=== PATIENT | male | born 1955 | race Caucasian/White ===

== ENCOUNTER → 2016-06-01 | Outpatient (CLI) | payer OTHER ==
[~2016-06-01] MED LIST: ALBU17IN INH; ASPI1TAB PO; CRES40TA PO; HUMA100I3 SC; INSULADS SC; JANU100T PO; LASI40TA PO; LOSA100T36 PO; METF500T PO; METO100T PO; OMEP20CA3 PO; POTA10CA32 PO; SPIR50TA2 PO; TOPR100T PO; ULTR37.52 PO; VENL37.598 PO
[2016-06-01 18:06] LABS: INR 1.13
[2016-06-01 18:09] LABS: ALBUMIN 2.7 GM/DL (3.2-5.2); ALBUMIN/GLOBULIN RATIO 0.61 (1.00-1.93); ALKALINE PHOSPHATASE 289 U/L (45-117); ALT/SGPT 45 U/L (12-78); ANION GAP 9 MEQ/L (8-16); AST/SGOT 55 U/L (15-37); BLOOD UREA NITROGEN 21 MG/DL (7-18); CALCIUM LEVEL 9.1 MG/DL (8.5-10.1); CARBON DIOXIDE LEVEL 28 MEQ/L (21-32); CHLORIDE LEVEL 102 MEQ/L (98-107); CREATININE FOR GFR 1.19 MG/DL (0.70-1.30); GLOMERULAR FILTRATION RATE > 60.0 (>56); GLUCOSE, FASTING 107 MG/DL (70-105); POTASSIUM SERUM 4.5 MEQ/L (3.5-5.1); SODIUM LEVEL 139 MEQ/L (136-145); TOTAL PROTEIN 7.1 GM/DL (6.4-8.2)
[2016-06-01 18:12] LABS: BASO % 0.4 % (0.0-1.0); EOS # 0.2 K/mm3 (0.0-0.50); EOS % 2.2 % (0.0-3.0); LARGE UNSTAINED CELL # 0.2 K/mm3 (0.0-0.4); LARGE UNSTAINED CELL % 1.8 % (0.0-4.0); LYMPH # 1.7 K/mm3 (1.5-4.5); LYMPH % 20.2 % (24.0-44.0); MEAN CORPUSCULAR HEMOGLOBIN 33.8 pg (27.0-33.0); MEAN CORPUSCULAR HGB CONC 33.5 g/dl (32.0-36.5); MEAN CORPUSCULAR VOLUME 100.9 fl (80.0-96.0); MONO # 0.5 K/mm3 (0.0-0.8); MONO % 6.1 % (0.0-5.0); NEUTROPHILS # 5.9 K/mm3 (1.8-7.7); NEUTROPHILS % 69.3 % (36.0-66.0); PLATELET COUNT, AUTOMATED 165 k/mm3 (150-450); WHITE BLOOD COUNT 8.4 K/mm3 (4.0-10.0)
== END ==
LOC: M LAB 15:57
PROVIDERS: ATTEND Internal Medicine Gastroenterology
DX: I81 Portal vein thrombosis (principal)

== ENCOUNTER → 2016-06-10 | Outpatient (CLI) | payer OTHER ==
[~2016-06-10] VITALS: Ht 177.8 cm; Wt 114.8 kg
[~2016-06-10] MED LIST changes: +INSULADS INJ; +LIDOCAINE 2% INJ 100 MG/5 ML SDV (FOR ANES.) As Ordered ONE; +NS 1,000 ML IV SCH; +PRIL20CA9 PO; +PROP10TA56 PO; +PROPOFOL 200 MG/20 ML VIAL As Ordered ONE
--- NOTE | 2016-06-10 10:52 | ROOR ---
Patient Name: Niles Montalvo Procedure Date: 06/10/2016 10:33 AM Date of : 1955 Age: 60 Room: [facility] Gender: Male Note Status: Finalized Procedure: Upper GI endoscopy Indications: For therapy of esophageal varices Providers: Negrito CASAS MD Referring MD: Mateus SWAN MD Requesting Provider: Medicines: Monitored Anesthesia Care Complications: No immediate complications. Procedure: Pre-Anesthesia Assessment: - The heart rate, respiratory rate, oxygen saturations, blood pressure, adequacy of pulmonary ventilation, and response to care were monitored throughout the procedure. The Endoscope was introduced through the mouth, and advanced to the second part of duodenum. The upper GI endoscopy was accomplished without difficulty. The patient tolerated the procedure well. Findings: Grade II/III varices were found in the lower third of the esophagus. Six bands were successfully placed with incomplete eradication of varices. There was no bleeding during the procedure. Mild portal hypertensive gastropathy was found in the entire examined stomach. The exam was otherwise without abnormality. Impression: - Grade II/III esophageal varices. Incompletely eradicated. Banded x 6. - Portal hypertensive gastropathy. - The examination was otherwise normal. - No specimens collected. Recommendation: - Repeat upper endoscopy in 1 month for retreatment. - My office will call you to reschedule the procedure. Negrito Casas MD Negrito CASAS MD 06/10/2016 10:51:56 AM This report has been signed electronically. Number of Addenda: 0 Note Initiated On: 06/10/2016 10:33 AM Estimated Blood Loss: Estimated blood loss: none.
--- NOTE | 2016-06-10 11:06 | ROOR ---
Patient Name: Niles Montalvo Procedure Date: 06/10/2016 10:36 AM Date of : 1955 Age: 60 Room: [facility] Gender: Male Note Status: Finalized Procedure: Colonoscopy Indications: Screening for colorectal malignant neoplasm Providers: Negrito CASAS MD Referring MD: Mateus SWAN MD Requesting Provider: Medicines: Monitored Anesthesia Care Complications: No immediate complications. Procedure: Pre-Anesthesia Assessment: - The heart rate, respiratory rate, oxygen saturations, blood pressure, adequacy of pulmonary ventilation, and response to care were monitored throughout the procedure. The Colonoscope was introduced through the anus and advanced to the cecum, identified by appendiceal orifice and ileocecal valve. The colonoscopy was performed without difficulty. The patient tolerated the procedure well. The quality of the bowel preparation was good. Findings: The perianal and digital rectal examinations were normal. (Exam: Complete, Prep: Good or Excellent.) A 4 mm polyp was found in the hepatic flexure. The polyp was sessile. The polyp was removed with a cold snare. Resection and retrieval were complete. Internal hemorrhoids were found during retroflexion. The hemorrhoids were moderate. The exam was otherwise without abnormality on direct and retroflexion views. Impression: - One 4 mm polyp at the hepatic flexure, removed with a cold snare. Resected and retrieved. - Moderate Internal hemorrhoids. - The examination was otherwise normal on direct and retroflexion views. Recommendation: - Await pathology results. - If the pathology report reveals adenomatous tissue, then repeat the colonoscopy for surveillance in 5 years. - Telephone endoscopist for pathology results in 2 weeks. OTHER: - Hold Eliquis, You will need repeat Upper scope for re-treatment of esophagus varices before starting Eliquis. - Liquid/very soft diet for 48 hours. - You may use viscous Lidocaine for swallowing pain related to esophaeal varices banding. Script was sent to your pharmacy. - My office will call you to reschedule the procedure. Negrito Casas MD Negrito CASAS MD 06/10/2016 11:06:17 AM This report has been signed electronically. Number of Addenda: 0 Note Initiated On: 06/10/2016 10:36 AM Estimated Blood Loss: Estimated blood loss: none.
[2016-06-10 11:53] VITALS: BP 164/96
== END | disposition home or self-care (01) ==
LOC: M OPP 08:25
PROVIDERS: ATTEND Internal Medicine Gastroenterology
DX: Z12.11 Encounter for screening for malignant neoplasm of colon (principal); D12.3 Benign neoplasm of transverse colon; K64.8 Other hemorrhoids; I85.00 Esophageal varices without bleeding; K76.6 Portal hypertension; K31.89 Other diseases of stomach and duodenum; I10 Essential (primary) hypertension; E78.5 Hyperlipidemia, unspecified; E11.9 Type 2 diabetes mellitus without complications; K74.60 Unspecified cirrhosis of liver; R12 Heartburn; F41.9 Anxiety disorder, unspecified; F32.9 Major depressive disorder, single episode, unspecified; J44.9 Chronic obstructive pulmonary disease, unspecified; G47.30 Sleep apnea, unspecified; K21.9 Gastro-esophageal reflux disease without esophagitis; N28.9 Disorder of kidney and ureter, unspecified; F17.210 Nicotine dependence, cigarettes, uncomplicated; Z79.4 Long term (current) use of insulin; Z79.84 Long term (current) use of oral hypoglycemic drugs; Z79.51 Long term (current) use of inhaled steroids; Z79.899 Other long term (current) drug therapy

== ENCOUNTER → 2016-07-11 | Outpatient (CLI) | payer OTHER ==
[~2016-07-11] VITALS: Ht 177.8 cm; Wt 108.9 kg
[~2016-07-11] MED LIST changes: +ACETAMINOPHEN 120 MG SUPP PR ONE; +D5W/0.45% SODIUM CHLORIDE 1,000 ML IV SCH; +DEXTROSE 50% 50 ML SYRINGE As Ordered ONE; +DEXTROSE 50% 50 ML SYRINGE IV ONE; +DEXTROSE 50% 50 ML SYRINGE IV STA; +LEVALBUTEROL 1.25 MG/0.5 ML CONCENTRATE NEB INH ONE; -NS 1,000 ML IV SCH; +ONDANSETRON 4MG/2ML VIAL (J2405) IV PRN; +PHENYLephrine HCL 500 MCG/5 ML (100MCG/ML) SYRINGE (J2370) As Ordered ONE; +SUGAMMADEX SODIUM 500 MG/5 ML VIAL (BRIDION) As Ordered ONE; +VENL100T PO; +fentaNYL 100 MCG/2 ML INJECTION (J3010) As Ordered ONE; +fentaNYL 100 MCG/2 ML INJECTION (J3010) IV PRN
[2016-07-11] MEDS: NS 1,000 ML IV SCH ×2 (08:30→10:12)
--- NOTE | 2016-07-11 10:56 | ROOR ---
Patient Name: Niles Montalvo Procedure Date: 07/11/2016 9:57 AM Date of : 1955 Age: 60 Room: [facility] Gender: Male Note Status: Finalized Procedure: Upper GI endoscopy Indications: Follow-up of esophageal varices Providers: Negrito CASAS MD Referring MD: Mateus SWAN MD Requesting Provider: Medicines: Monitored Anesthesia Care Complications: No immediate complications. Procedure: Pre-Anesthesia Assessment: - The heart rate, respiratory rate, oxygen saturations, blood pressure, adequacy of pulmonary ventilation, and response to care were monitored throughout the procedure. The Endoscope was introduced through the mouth, and advanced to the second part of duodenum. The upper GI endoscopy was accomplished without difficulty. The patient tolerated the procedure well. Findings: Grade II varices were found in the lower third of the esophagus. Five bands were successfully placed. This was done to prevent bleeding. Mild portal hypertensive gastropathy was found in the entire examined stomach. The exam was otherwise without abnormality. Impression: - Grade II esophageal varices. Banded. - Portal hypertensive gastropathy. - The examination was otherwise normal. - No specimens collected. Recommendation: - Observe patient's clinical course. - Return to my office in 3 weeks. (my office will call you for appointment) - increase Furosemide/Lasix to 60 mg twice a day (1 1/2 tabs twice a day). - increase Spironolactone to 150 mg once a day (1 1/2 tabs once a day). - New script was sent to your pharmacy. - You may start your Eliquis in 5 days. Negrito Casas MD Negrito CASAS MD 07/11/2016 10:55:37 AM This report has been signed electronically. Number of Addenda: 0 Note Initiated On: 07/11/2016 9:57 AM Estimated Blood Loss: Estimated blood loss: none.
[2016-07-11 12:20] VITALS: BP 140/81
== END ==
LOC: M OPP 08:35
PROVIDERS: ATTEND Internal Medicine Gastroenterology
DX: Z09 Encounter for follow-up examination after completed treatment for conditions other than malignant neoplasm (principal); I85.00 Esophageal varices without bleeding; K76.6 Portal hypertension; K31.89 Other diseases of stomach and duodenum; F17.200 Nicotine dependence, unspecified, uncomplicated; E11.22 Type 2 diabetes mellitus with diabetic chronic kidney disease; I12.0 Hypertensive chronic kidney disease with stage 5 chronic kidney disease or end stage renal disease; N18.6 End stage renal disease; G47.30 Sleep apnea, unspecified; K74.60 Unspecified cirrhosis of liver; E78.00 Pure hypercholesterolemia, unspecified; K21.9 Gastro-esophageal reflux disease without esophagitis; F41.9 Anxiety disorder, unspecified; F32.9 Major depressive disorder, single episode, unspecified; G62.9 Polyneuropathy, unspecified; J44.9 Chronic obstructive pulmonary disease, unspecified; R06.83 Snoring; R60.0 Localized edema; M19.041 Primary osteoarthritis, right hand; M19.042 Primary osteoarthritis, left hand; M17.0 Bilateral primary osteoarthritis of knee; Z79.4 Long term (current) use of insulin; Z79.84 Long term (current) use of oral hypoglycemic drugs; Z79.899 Other long term (current) drug therapy
CPT/HCPCS: 43244; 99156; 99157; J2370; J3010